=== PATIENT | male | born 1965 ===

== ENCOUNTER 2018-02-10 11:23 | Emergency (ER) | payer BC ==
[2018-02-10 11:42] VITALS: BP 114/72
[2018-02-10] MEDS ORDERED: Fluorescein Sod TOPICAL 0.6* 0.6 MG TEST OPHTHALMIC ONE (12:07)
--- NOTE | 2018-02-10 12:17 | UC ---
Eye Complaint HPI - HPI Summary HPI Summary: pt roused with a FB sensation in his L eye this am. he notes some redness. he did flush his eye and tried to clean it with a paper towel with no relief. he denies any injury, contact use, visual changes, uri. 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 - History of Current Complaint Chief Complaint: UCEye Stated Complaint: LEFT EYE COMPLAINT Time Seen by Provider: 02/10/18 12:06 Hx Obtained From: Patient Timing: Constant Pain Intensity: 3 Aggravating Factor(s): Nothing Alleviating Factor(s): Nothing Associated Signs And Symptoms: Negative: Photophobia, Drainage (Clear), Vision Impairment Right, Vision Impairment Left, Fever, Swelling - Risk Factors Penetrating Injury Risk Factor: Negative Globe Rupture Risk Factors: Negative Acute Glaucoma Risk Factors: Negative Optic Artery Occlusion Risk Factors: Negative - Allergies/Home Medications Allergies/Adverse Reactions: Allergies Allergy/AdvReac Type Severity Reaction Status Date / Time No Known Allergies Allergy Verified 02/10/18 11:37 PMH/Surg Hx/FS Hx/Imm Hx Previously Healthy: Yes - Surgical History Surgical History: Yes Surgery Procedure, Year, and Place: knee - Family History Known Family History: Positive: Other - "healthy" - Social History Occupation: Employed Full-time Lives: With Family Alcohol Use: Rare Substance Use Type: None Substance Use Comment - Amount & Last Used: occasional Smoking Status (MU): Heavy Every Day Tobacco Smoker Type: Cigarettes Amount Used/How Often: 1 ppd Length of Time of Smoking/Using Tobacco: 30 + years Household Exposure Type: Cigarettes - Immunization History Vaccination Up to Date: Yes Review of Systems Constitutional: Negative Skin: Negative Eyes: Eye Redness - L ENT: Negative Respiratory: Negative Cardiovascular: Negative Gastrointestinal: Negative Genitourinary: Negative Motor: Negative Neurovascular: Negative Musculoskeletal: Negative Neurological: Negative Psychological: Negative Is Patient Immunocompromised?: No All Other Systems Reviewed And Are Negative: Yes Physical Exam Triage Information Reviewed: Yes Appearance: Well-Appearing Vital Signs: Initial Vital Signs Temp 98.5 F 02/10/18 11:37 Pulse 68 02/10/18 11:37 Resp 20 02/10/18 11:37 BP 114/72 02/10/18 11:37 Pulse Ox 99 02/10/18 11:37 Vital Signs Reviewed: Yes Eyes: Positive: Other: - No periorbital edema or erythema. PERRL, EOMI. Lids everted and no FB's. Small to medium subconjunctival hemorrhage medial L eye and mild conjunctival chemosis L eye. Fluro-stain L and no abrasions, perforations or dendrites(stain plus under lids of L eye flushed with sterile NaCL. ENT: Positive: Pharyngeal erythema, TMs normal, Other - no auricular or cervical adenopathy. Negative: Nasal congestion, Nasal drainage Neck: Positive: Supple, Nontender Respiratory: Positive: Lungs clear, Normal breath sounds Cardiovascular: Positive: RRR, No Murmur Abdomen Description: Positive: Nontender, No Organomegaly, Soft Bowel Sounds: Positive: Present Musculoskeletal: Positive: ROM Intact Neurological: Positive: Alert Psychological: Positive: Age Appropriate Behavior Skin Exam: Normal Eye Complaint Course/Dx - Course Course Of Treatment: Lubricant drops placed in each eye as this may be a dry eye issue with the secondary subconjunctival hemorrhage and chemosis. pt denied any allergy s/s's. no concern for glaucoma, dendrites, abrasion. no fb's. need for f/u opthamology stressed. - Differential Dx/Diagnosis Provider Diagnoses: Subconjunctival hemorrhage L eye, conjunctival chemosis L eye. Possible dry eye. Discharge - Sign-Out/Discharge Documenting (check all that apply): Discharge/Admit/Transfer - Discharge Plan Condition: Stable Disposition: HOME Patient Education Materials: Subconjunctival Hemorrhage (ED), Dry Eye Syndrome (ED) Forms: *Work Release Referrals: Karly Briceno MD [Primary Care Provider] - If Needed Lalita Good MD [Medical Doctor] - 3 Days Additional Instructions: FOLLOW UP EYE DOCTOR IN 3 DAYS FOR A RECHECK OR SOONER FOR ANY CHANGES OR WORSENING APPLY 1 DROP OF EYE LUBRICANT TO EACH EYE 3 X'S DAILY PLUS NEEDED - Billing Disposition and Condition Condition: STABLE Disposition: HOME
[2018-02-10] MEDS ORDERED: Artificial Tears* 15 ML BTL LEFT EYE ONE (12:23)
== END 2018-02-10 12:53 | disposition home or self-care (01) ==
LOC: UCCORT 11:23
DX: H11.32 Conjunctival hemorrhage, left eye (principal); H11.422 Conjunctival edema, left eye; F17.210 Nicotine dependence, cigarettes, uncomplicated
CPT/HCPCS: 99213; A9270-GY; G0463